=== PATIENT | female | born 1970 | race Caucasian/White ===

== ENCOUNTER 2017-02-19 14:28 | Emergency (ER) | payer OTHER ==
[~2017-02-19] VITALS: Ht 157.5 cm; Wt 38.5 kg
--- NOTE | ~2017-02-19 | CT57 ---
[facility]. [facility] A Service of [facility] RADIOLOGY TEXT RESULTS PATIENT: DARIEN NATION LOCATION: SED : 68 UNIT #: [id number] AGE: [address]: Calvin Magaña MD SEX: F ORDER DR: [id number] [place] [id number] E MR#: [id number] Acc #: [id number] NAME: DARIEN NATION. : 1970 SEX: F STUDY DATE/TIME: 02/19/2017 16:06 UNIT: SED ROOM: STUDY DESCRIPTION: CT Chest Wo Cont Attending Physician: Calvin Magaña M.D. Ordering Physician: Calvin Magaña M.D. Primary Care Physician: Janet Grider A.P.R.N. MEDICAL IMAGING REPORT This report is preliminary unless electronic signature is present. EXAM CT chest without contrast 02/19/2017 HISTORY Productive cough, fever and pain with inspiration since yesterday. Smoking history. COMPARISON AP portable chest 03/12/2016. No prior CT chest at this institution for comparison. PROCEDURE 5 mm noncontrast axial images through the chest. Sagittal and coronal reformatted images were obtained. This CT examination was performed with one or more of the following radiation dose reduction techniques: automatic exposure control, adjustment of mA and/or kV according to patient size, and iterative reconstruction. FINDINGS Multifocal patchy alveolar densities are scattered diffusely throughout both lungs, with more dense consolidative change within the right middle lobe. Bronchiolar wall thickening is demonstrated within both lungs with tree-in-bud nodular densities, right greater than left. Constellation of findings is favored to represent changes of diffuse bronchopneumonia. Trace right pleural effusion is seen at the base. No pathologic adenopathy is identified. Incidental note is made of bilateral breast augmentation. Incidental note is made of a right hepatic cyst measuring 1.7 cm (Hounsfield units -6). Remainder of included upper abdominal organs are within normal limits. IMPRESSION 1. No acute or suspicious osseous abnormalities are identified. [facility] A Service of [facility] RADIOLOGY TEXT RESULTS PATIENT: DARIEN NATION [place] [facility] [place] [birth year] UNIT #: [id number] AGE: [address]: Calvin Magaña MD SEX: F ORDER DR: Multifocal patchy nodular densities, tree-in-bud nodular densities, and peripheral bronchiolar wall thickening, greatest in the right lung, greatest in the right middle lobe. Findings are favored to represent changes of diffuse bronchopneumonia. Radiographic follow up to document resolution is recommended. 2. Trace right pleural effusion. Dictated by... Radha Gonzalez M.D. THIS IS AN ELECTRONICALLY VERIFIED REPORT Radha Gonzalez M.D. at 02/21/2017 9:52 AM MERLENE/halina TD: 02/20/2017 12:47 JOB #: [id number] MEDICAL IMAGING REPORT Page 1 of 1
[~2017-02-19 14:28] MED LIST: AMOXICILLIN875 MG PO; BENADRYL25 MG PO; CIPRO PO; CLINDAMYCIN HC300 MG PO; FLEXERIL10 M1 PO; MAGIC MOUTHWASH; MAGIC MOUTHWASH PO; MOTRIN400 MG PO; NILSTAT PO; NO MEDICATIONS; PERCOCET PO; PHENERGAN DM1 ML DOB; PHENERGAN DM1 ML PO; SUBOXONE 8 MG-1 EACH SL; TYLOX 5/500 CAP1 CAP PO; TYLOX1 CAP 5/50 PO; ULTRAM PO; VALTREX PO; VOLTAREN75 MG PO; Z-PACK PO; ZITHROMAX PO
== END 2017-02-19 17:34 | disposition home or self-care (01) ==
LOC: SED 14:28
DX: J18.1 Lobar pneumonia, unspecified organism (principal); R09.1 Pleurisy; F19.10 Other psychoactive substance abuse, uncomplicated; F17.210 Nicotine dependence, cigarettes, uncomplicated; Z79.899 Other long term (current) drug therapy
CPT/HCPCS: 71250; 94640; 99283